=== PATIENT | male | born 1985 | race African-American/Black ===

== ENCOUNTER 2021-03-09 18:18 | Emergency (ER) | payer SELFPAY ==
[~2021-03-09] VITALS: Ht 167.6 cm; Wt 79.5 kg
[2021-03-10 00:35] VITALS: BP 142/88
[2021-03-10] MEDS ORDERED: NAPR-514 PO (00:48)
[2021-03-10] MEDS ORDERED: CYCL10TA19 PO (00:48)
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
== END 2021-03-10 00:53 | disposition home or self-care (01) ==
LOC: ER 18:18
DX: S13.9XXA Sprain of joints and ligaments of unspecified parts of neck, initial encounter (principal); M25.562 Pain in left knee; R51.9 Headache, unspecified; V89.2XXA Person injured in unspecified motor-vehicle accident, traffic, initial encounter; Y93.89 Activity, other specified; Y92.488 Other paved roadways as the place of occurrence of the external cause; Y99.8 Other external cause status
CPT/HCPCS: 99283